=== PATIENT | male | born 1965 | race Caucasian/White ===

== ENCOUNTER → 2019-04-12 | Outpatient (CLI) | payer OTHER ==
[2019-04-12 09:08] LABS: Basophils % (A) 0 %; Eosinophils # (A) 0.2 k/uL (0-0.7); Eosinophils % (A) 1 %; HCT 46.7 % (39.0-53.0); HGB 16.1 gm/dL (13.0-17.5); Lymphocytes # (A) 1.4 k/uL (1.0-4.8); Lymphocytes % (A) 11 %; MCH 32.4 pg (25.0-35.0); MCHC 34.5 g/dL (31.0-37.0); Mean Platelet Volume 6.9; Monocytes # (A) 0.6 k/uL (0-1.0); Monocytes % (A) 5 %; Neutrophils # (A) 10.6 k/uL (1.3-7.7); Neutrophils % (A) 83 %; Platelet Count 334 k/uL (150-450); RBC 4.97 m/uL (4.30-5.90); RDW 12.9 % (11.5-15.5); WBC 12.8 k/uL (3.8-10.6)
[2019-04-12 09:18] LABS: African American GFR (CKD) >90 (>60 ml/min/1.73 sqM); Anion Gap 13 mmol/L; Blood Urea Nitrogen 10 mg/dL (9-20); Calcium 9.6 mg/dL (8.4-10.2); Carbon Dioxide 23 mmol/L (22-30); Chloride 104 mmol/L (98-107); Glucose 238 mg/dL (74-99); Non-African American GFR(CKD) >90 (>60 ml/min/1.73 sqM); Sodium 140 mmol/L (137-145)
--- NOTE | 2019-04-12 09:46 | XR ---
EXAMINATION TYPE: XR chest 2V DATE OF EXAM: 04/12/2019 COMPARISON: NONE HISTORY: Preop TECHNIQUE: Frontal and lateral views of the chest are obtained. FINDINGS: There is no focal air space opacity, pleural effusion, or pneumothorax seen. The cardiac silhouette size is within normal limits. The osseous structures are intact. Question some prominenc e of interstitium. IMPRESSION: No acute cardiopulmonary process. Questionable interstitial lung disease.
== END | disposition home or self-care (01) ==
LOC: RADXRMAIN 08:12
PROVIDERS: ATTEND Urology
DX: Z01.818 Encounter for other preprocedural examination (principal); Z01.812 Encounter for preprocedural laboratory examination; R05 Cough; R53.83 Other fatigue; R33.9 Retention of urine, unspecified; N40.1 Benign prostatic hyperplasia with lower urinary tract symptoms
CPT/HCPCS: 36415; 71046; 80048; 84153; 85025; 93005

== ENCOUNTER 2019-04-19 11:07 | Day surgery (SDC) | payer OTHER ==
[2019-04-11 11:53] VITALS: BMI 29.8
--- NOTE | 2019-04-17 19:48 | P.HPIHPCON ---
History of Present Illness H&P Date: 04/18/19 Chief Complaint: Urinary retention Mr Molina is 53 yo male with hx of urinary retention, He failed multiple TOV. I discussed with him the surgical option vs CIC. He agreed to proceed with TURP. I discussed with him the risk of TURP which include but not limited to bleeding, infection, injury to the bladder, risk of incontinence. Also discussed that he will have retrograde ejaculation. Also discussed risk he might still have difficulty voiding after TURP. Also discussed risk from anesthesia which include but not limited to heart attack, stroke, blood clot and even loss of life. He understood all risks and agreed to proceed with TURP Consent for Procedure: I have explained the operation/procedure to the patient, including the risks, benefits, side effects, alternative therapies (including not receiving the proposed treatment or service), the likelihood of the patient achieving his/her goals, and potential recuperation problems for the procedure/sedation/analgesia, as well as any blood products, if indicated. I also explained to the patient the risks, benefits and side effects of the alternatives, as well as the risks related to not receiving the proposed procedure, care, treatment, or services. - Constitutional Constitutional: Denies chills, Denies fever - Cardiovascular Cardiovascular: Denies chest pain, Denies dyspnea on exertion - Respiratory Respiratory: Denies cough Past Medical History Past Medical History: Hyperlipidemia, Hypertension, Prostate Disorder Additional Past Medical History / Comment(s): was seen in ER @ [facility] and had hernandez inserted 03-01-19-stated "Dr had attempted to remove x2 in office but not able to urinate afterward",enlarged prostate,hx no longer on any high blood pressure meds or cholesterol meds History of Any Multi-Drug Resistant Organisms: None Reported Past Surgical History: No Surgical Hx Reported Additional Past Surgical History / Comment(s): wisdom teeth removal Past Anesthesia/Blood Transfusion Reactions: No Reported Reaction Additional Past Anesthesia/Blood Transfusion Reaction / Comment(s): never has had general anesthesia or blood transfusion Smoking Status: Current every day smoker - Past Family History Mother Family Medical History: No Reported History Medications and Allergies Home Medications Medication Instructions Recorded Confirmed Type Ibuprofen 200 mg PO Q6H PRN 04/11/19 04/11/19 History Tamsulosin [Flomax] 0.4 mg PO BID 04/11/19 04/11/19 History Allergies Allergy/AdvReac Type Severity Reaction Status Date / Time No Known Allergies Allergy Verified 04/11/19 11:44 Surgical - Exam - General well developed, well nourished - Respiratory normal expansion, normal respiratory effort - Abdomen Abdomen: soft, non tender - Psychiatric oriented to time, oriented to person, oriented to place, speech is normal Assessment and Plan Assessment: 53 yo male with hx of urinary retention -OR for TURP
[~2019-04-19 11:07] MED LIST: DEXAMETHASONE SOD PHOSPHATE 10 MG/ML 1 ML VIAL IV ONE; GENTAMICIN 120 MG in SODIUM CHLORIDE 0.9% 100 ML IVPB ONE; HYDROmorphone 0.5 MG/0.5 ML SYRINGE IVP PRN; LACTATED RINGERS 1,000 ML IV SCH; LIDOCAINE 1% 20 ML VIAL (10MG/ML) FOR IV START INTRADERMA PRN; MIDAZOLAM 2 MG/2 ML VIAL IV PRN; ONDANSETRON 4 MG/2 ML VIAL IVP ONE; SCOPOLAMINE 1.5MG/72HR PATCH TRANSDERM ONE
[2019-04-19] MEDS ORDERED: NEOSTIGMINE 1 MG/ML 10 ML VIAL ONE (13:14)
[2019-04-19] MEDS ORDERED: GLYCOPYRROLATE 0.2 MG/ML 2 ML VIAL ONE (13:14)
[2019-04-19] MEDS ORDERED: fentaNYL (PF) 50 MCG/ML 2 ML AMP ONE (13:14)
[2019-04-19] MEDS ORDERED: HYDROmorphone (PF) 1 MG/ML ONE (13:14)
[2019-04-19] MEDS ORDERED: PROPOFOL 10 MG/ML 20 ML VIAL IV ONE (13:14)
[2019-04-19] MEDS ORDERED: MIDAZOLAM 2 MG/2 ML VIAL ONE (13:14)
[2019-04-19] MEDS ORDERED: SUCCINYLCHOLINE CHLORIDE 100 MG/5 ML SYR IV ONE (13:14)
[2019-04-19] MEDS ORDERED: LIDOCAINE 1% INJ 10MG/ML (20 ML MDV) ONE (13:14)
[2019-04-19] MEDS ORDERED: ROCURONIUM BROMIDE 10 MG/ML 10 ML VIAL IV ONE (13:14)
[2019-04-19] MEDS ORDERED: ePHEDrine SULFATE/0.9% NACL/PF 50 MG/5 ML SYRINGE IV ONE (13:14)
[2019-04-19] MEDS ORDERED: LACTATED RINGERS 1,000 ML IV ONE (14:29)
[2019-04-19 16:07] VITALS: RESP 16; TEMP 98.2
--- NOTE | 2019-04-19 16:29 | P.OP ---
Date of Procedure: 04/19/19 Preoperative Diagnosis: Urinary retention Postoperative Diagnosis: Same Procedure(s) Performed: TURP, TURBT(small) Implants: None Anesthesia: EVELYNA Surgeon: Brady Conrad Estimated Blood Loss (ml): 100 Pathology: other (bladder tumor, Prostate Chips) Condition: stable Disposition: PACU Indications for Procedure: Mr Molina is 53 yo male with hx of urinary retention, He failed multiple TOV. I discussed with him the surgical option vs CIC. He agreed to proceed with TURP. I discussed with him the risk of TURP which include but not limited to bleeding, infection, injury to the bladder, risk of incontinence. Also discussed that he will have retrograde ejaculation. Also discussed risk he might still have difficulty voiding after TURP. Also discussed risk from anesthesia which include but not limited to heart attack, stroke, blood clot and even loss of life. He understood all risks and agreed to proceed with TURP Operative Findings: Trilobar hyperplasia, evidence of catheter cystitis, leaving the area of cathete r cystitis there was a 1 cm area with raised border that was hypervascular concerning for Bladder cancer Description of Procedure: The patient was taken in the operating room and placed in the dorsolithotomy position, general anesthesia was induced. The external genitalia was prepped and draped sterilely. The 25-[place] ACMI resectoscope sheath was introduced into t he bladder. The bladder was inspected. Both ureteral orifices were of normal anatomic location and configuration, and clear urine effluxed from both. There was evidence of catheter cystitis. within the area of catheter cystitis there was a 1 cm lesion that was hypervascular with raised border with slightly papillary configuartion, this area was at the posterior bladder wall. This was concerning for bladder cancer. The described lesion was resected down and sent to pathology. the area of resection was thoroughly fulgurated. Examination of the prostate revealed complete with a trilobar configuration. Using the bipolar, the prostate lobes were resected down to the surgical capsule. The floor of the prostate was then resected, proximal to the verumontanum. Lastly, any remaining anterior tissue was resected. The remaining apical tissue was then carefully resected. The resection was carried down to the surgical capsule in all 4 quadrants. The prostatic fossa was then carefully examined, and any areas of bleeding were controlled with electrocautery. excellent hemostasis was attained. The resectoscope was withdrawn into the bulbous urethra. The external urinary sphincter remained intact. The prostatic fossa was open. The GeneCapture evacuator was used to remove all prostate chips from the bladder. These were saved and sent for pathologic examination. The resectoscope was removed, and a 22 arg[place] Mariee catheter was placed. The return was essentially clear. The patient tolerated the procedure well was taken to the recovery room in stable condition.
[2019-04-19 17:14] VITALS: BP 116/75; PULSE 91
== END 2019-04-19 17:28 | disposition home or self-care (01) ==
LOC: OR 11:07
PROVIDERS: ATTEND Urology
DX: N40.1 Benign prostatic hyperplasia with lower urinary tract symptoms (principal); R33.8 Other retention of urine; N30.00 Acute cystitis without hematuria; N30.20 Other chronic cystitis without hematuria; N32.89 Other specified disorders of bladder; I10 Essential (primary) hypertension; E78.5 Hyperlipidemia, unspecified; G47.33 Obstructive sleep apnea (adult) (pediatric); F17.210 Nicotine dependence, cigarettes, uncomplicated; K21.9 Gastro-esophageal reflux disease without esophagitis; Z79.899 Other long term (current) drug therapy; Z98.818 Other dental procedure status
CPT/HCPCS: 88305; 52234; 52601; J2250; J1100; J2710; J0690; J2405; J2001; J3010; J1580; J1170; J0330; J2704

== ENCOUNTER 2021-06-22 13:12 | Emergency (ER) | payer OTHER ==
[2021-06-22 13:23] VITALS: TEMP 98.8
--- NOTE | 2021-06-22 14:21 | XR ---
Right ankle HISTORY: Trauma and pain 3 views of the right ankle Comminuted displaced distal diaphyseal right fibular fracture, displaced medial malleolar fracture ar e present, there is lateral dislocation of the talus in regard to the distal tibia of approximately 2 cm. There is associated soft tissue swelling. IMPRESSION: Displaced fractures with associated dislocation is described
[2021-06-22] MEDS ORDERED: SODIUM CHLORIDE 0.9% 1,000 ML IV STA (15:00)
[2021-06-22] MEDS ORDERED: PROPOFOL 10 MG/ML 20 ML VIAL IV ONE (15:00)
[2021-06-22] MEDS ORDERED: MORPHINE SULFATE 4 MG/ML SYRINGE IVP STA (15:10)
--- NOTE | 2021-06-22 15:25 | ED ---
General Adult HPI - General Chief complaint: Extremity Injury, Lower Stated complaint: Rt Leg/Ankle Injury Time Seen by Provider: 06/22/21 15:00 Source: patient, family Mode of arrival: wheelchair Limitations: no limitations - History of Present Illness Initial comments: Dictation was produced using [employer] dictation software. please excuse any gram matical, word or spelling errors. Chief Complaint: Patient is a 55-year-old male presents emergency department for right ankle pain. History of Present Illness: 55-year-old male who has past medical history of diabetes. Patient was working at approximately 12:30 PM when his right lower extremity was crushed between 2 logs. He was driven here by one of his coworkers. Patient denies any numbness tingling to his foot. He states that he has extreme throbbing pain to his right ankle. Patient denies any bleeding. Patient states he had prostate surgery in the past and has tolerated anesthesia without any complications. Patient has NO KNOWN DRUG ALLERGIES. The ROS documented in this emergency department record has been reviewed and confirmed by me. Those systems with pertinent positive or negative responses have been documented in the HPI. All other systems are other negative and/or noncontributory. PHYSICAL EXAM: General Impression: Alert and oriented x3, not in acute distress HEENT: Normocephalic atraumatic, extra-ocular movements intact, pupils equal and reactive to light bilaterally, mucous membranes moist. Cardiovascular: Heart regular rate and rhythm Chest: Able to complete full sentences, no retractions, no tachypnea Abdomen: abdomen soft, non-tender, non-distended, no organomegaly Musculoskeletal: Pulses present and equal in all extremities, no peripheral edema Motor: no focal deficits noted Neurological: CN II-XII grossly intact, no focal motor or sensory deficits noted Right ankle: Grossly swollen and deformed right ankle, intact dorsalis pedis pulse and posterior tibial pulse, no numbness to light touch of the foot. Skin: Intact with no visualized rashes Psych: Normal affect and mood ED course: 55-year-old no presents to the emergency department for right ankle injury. Upon arrival shows heart rate of 114, rest of vital signs within a cceptable limits. Patient was placed in room 24. I arrived at work at 3:00 PM when I assumed care for this patient. He had been waiting approximately one hour and 30 minutes. Triage had ordered an x-ray that showed fracture dislocation of the right ankle. Skin is intact. Clinical presentation consistent with bimalleolar fracture of the right ankle. Patient ordered for morphine. Risk and benefits were discussed with patient. Patient signed consent for procedural sedation. Patient tolerated procedure well. He is placed in a splint. Post reduction x- rays are improved. There is comment made by radiology to obtain proximal fibular x-rays. He does not have any point tenderness in that area. Regardless patient is can be nonweightbearing to the right lower extremity. He is given a pair of Crutches. Case was discussed with Merissa who is the mid-level provider who recommend patient follow-up with orthopedic surgery within the next 3-4 days. A reevaluated bedside at 4:45 PM. He is stable. He is discharged with outpatient referral to orthopedic surgery. - Related Data Home Medications Medication Instructions Recorded Confirmed Ibuprofen 200 mg PO Q6H PRN 04/11/19 04/19/19 Tamsulosin [Flomax] 0.4 mg PO BID 04/11/19 04/19/19 Previous Rx's Medication Instructions Recorded HYDROcodone/APAP 5-325MG [Old Station 1 tab PO Q6HR PRN 3 Days #12 tab 06/22/21 5-325] Allergies Allergy/AdvReac Type Severity Reaction Status Date / Time No Known Allergies Allergy Verified 06/22/21 13:24 Review of Systems ROS Statement: Those systems with pertinent positive or pertinent negative responses have been documented in the HPI. ROS Other: All systems not noted in ROS Statement are negative. Past Medical History Past Medical History: Hyperlipidemia, Hypertension, Prostate Disorder Additional Past Medical History / Comment(s): was seen in ER @ [facility] and had hernandez inserted 03-01-19-stated "Dr had attempted to remove x2 in office but not able to urinate afterward",enlarged prostate,hx no longer on any high blood pressure meds or cholesterol meds History of Any Multi-Drug Resistant Organisms: None Reported Past Surgical History: No Surgical Hx Reported Additional Past Surgical History / Comment(s): wisdom teeth removal Past Anesthesia/Blood Transfusion Reactions: No Reported Reaction Additional Past Anesthesia/Blood Transfusion Reaction / Comment(s): never has had general anesthesia or blood transfusion Past Psychological History: No Psychological Hx Reported Smoking Status: Current every day smoker Past Alcohol Use History: Rare Past Drug Use History: None Reported - Past Family History Mother Family Medical History: No Reported History General Exam Limitations: no limitations Course Vital Signs 06/22/21 06/22/21 06/22/21 13:18 15:27 15:42 Temperature 98.8 F Pulse Rate 114 H 93 93 Respiratory 20 18 18 Rate Blood Pressure 172/87 143/89 151/74 O2 Sat by Pulse 97 97 95 Oximetry 06/22/21 06/22/21 06/22/21 15:45 15:50 15:55 Temperature Pulse Rate 93 75 90 Respiratory 18 18 18 Rate Blood Pressure 147/89 138/90 150/95 O2 Sat by Pulse 98 97 99 Oximetry 06/22/21 06/22/21 06/22/21 16:00 16:15 16:30 Temperature Pulse Rate 86 78 80 Respiratory 18 18 17 Rate Blood Pressure 131/99 146/90 144/80 O2 Sat by Pulse 96 98 97 Oximetry Procedures - Orthopedic Splinting/Casting Injury #1 Side: right Lower Extremity Injury Location: ankle Lower Extremity Immobilizer: posterior splint (orthoglass) Other Orthopedic Equipment: crutches - Procedural Sedation Procedural Sedation Start Time: 15:45 Procedural Sedation Stop Time: 15:52 Indications: fracture/dislocation reduction ASA Class: II Mallampati Airway Score: 2 Preparation: seismic plotter applied, pulse oximeter, capnometry used, supplemental O2 applied IV Propofol Dose (mgs): 100 Complications: none Medical Decision Making - Lab Data Result diagrams: 06/22/21 15:20 06/22/21 15:20 Lab Results 06/22/21 06/22/21 Range/Units 15:20 15:20 WBC 16.4 H (3.8-10.6) k/uL RBC 5.50 (4.30-5.90) m/uL Hgb 17.5 (13.0-17.5) gm/dL Hct 51.5 (39.0-53.0) % MCV 93.7 (80.0-100.0) fL MCH 31.7 (25.0-35.0) pg MCHC 33.9 (31.0-37.0) g/dL RDW 12.9 (11.5-15.5) % Plt Count 349 (150-450) k/uL MPV 7.0 Neutrophils % 82 % Lymphocytes % 12 % Monocytes % 5 % Eosinophils % 1 % Basophils % 0 % Neutrophils # 13.5 H (1.3-7.7) k/uL Lymphocytes # 1.9 (1.0-4.8) k/uL Monocytes # 0.7 (0-1.0) k/uL Eosinophils # 0.1 (0-0.7) k/uL Basophils # 0.1 (0-0.2) k/uL Sodium 138 (137-145) mmol/L Potassium 4.3 (3.5-5.1) mmol/L Chloride 106 (98-107) mmol/L Carbon Dioxide 20 L (22-30) mmol/L Anion Gap 12 mmol/L BUN 12 (9-20) mg/dL Creatinine 0.93 (0.66-1.25) mg/dL Est GFR (CKD-EPI)AfAm >90 (>60 ml/min/1.73 sqM) Est GFR (CKD-EPI)NonAf >90 (>60 ml/min/1.73 sqM) Glucose 119 H (74-99) mg/dL Calcium 9.5 (8.4-10.2) mg/dL Disposition Clinical Impression: Ankle fracture Disposition: HOME SELF-CARE Condition: Fair Instructions (If sedation given, give patient instructions): Moderate Sedation (ED), Ankle Fracture (ED) Additional Instructions: no weight bearing to fractured leg Prescriptions: HYDROcodone/APAP 5-325MG [[place] Station 5-325] 1 tab PO Q6HR PRN 3 Days #12 tab PRN Reason: Severe Pain Is patient prescribed a controlled substance at d/c from ED?: Yes If prescribed controlled substance>3 days was MAPS reviewed?: Prescribed <3 Days Referrals: Trung Navarro DO [Doctor of Osteopathic Medicine] - 1-2 days
[2021-06-22 15:43] LABS: Basophils # (A) 0.1 k/uL (0-0.2); Basophils % (A) 0 %; Eosinophils # (A) 0.1 k/uL (0-0.7); Eosinophils % (A) 1 %; HCT 51.5 % (39.0-53.0); HGB 17.5 gm/dL (13.0-17.5); Lymphocytes # (A) 1.9 k/uL (1.0-4.8); Lymphocytes % (A) 12 %; MCH 31.7 pg (25.0-35.0); MCHC 33.9 g/dL (31.0-37.0); MCV 93.7 fL (80.0-100.0); Monocytes # (A) 0.7 k/uL (0-1.0); Monocytes % (A) 5 %; Neutrophils # (A) 13.5 k/uL (1.3-7.7); Neutrophils % (A) 82 %; Platelet Count 349 k/uL (150-450); RDW 12.9 % (11.5-15.5); WBC 16.4 k/uL (3.8-10.6)
[2021-06-22 16:03] LABS: African American GFR (CKD) >90 (>60 ml/min/1.73 sqM); Anion Gap 12 mmol/L; Blood Urea Nitrogen 12 mg/dL (9-20); Calcium 9.5 mg/dL (8.4-10.2); Carbon Dioxide 20 mmol/L (22-30); Chloride 106 mmol/L (98-107); Glucose 119 mg/dL (74-99); Non-African American GFR(CKD) >90 (>60 ml/min/1.73 sqM); Potassium 4.3 mmol/L (3.5-5.1); Sodium 138 mmol/L (137-145)
--- NOTE | 2021-06-22 16:14 | XR ---
EXAMINATION TYPE: XR ankle limited RT DATE OF EXAM: 06/22/2021 COMPARISON: X-ray dated 06/22/2021 at 2:21 PM INDICATION: Postreduction TECHNIQUE: 2 views of the right ankle FINDINGS: The right ankle is seen in a fiberglass cast obscuring fine bony details. Interval proper reduction o f the previously seen fracture dislocation of the right ankle. The fractured distal fibular diaphysis as well as medial malleolus are still appreciated. Surrounding soft tissue swelling/hematoma. Recomm end x-ray of the proximal fibula to rule out Maisonneuve fracture. IMPRESSION: As above.
[2021-06-22 17:21] VITALS: RESP 18
[2021-06-22 17:26] VITALS: BP 146/90; PULSE 83
== END 2021-06-22 17:30 | disposition home or self-care (01) ==
LOC: EC 13:12
DX: S82.891A Other fracture of right lower leg, initial encounter for closed fracture (principal); S93.04XA Dislocation of right ankle joint, initial encounter; E11.9 Type 2 diabetes mellitus without complications; I10 Essential (primary) hypertension; E78.5 Hyperlipidemia, unspecified; F17.200 Nicotine dependence, unspecified, uncomplicated; Z79.899 Other long term (current) drug therapy; W23.0XXA Caught, crushed, jammed, or pinched between moving objects, initial encounter
CPT/HCPCS: 36415; 80048; 85025; 73600; 73610; 27788; 99283; 96374; 96361 ×2; J2270; J2704

== ENCOUNTER 2021-07-02 08:51 | Day surgery (SDC) | payer OTHER ==
[2021-06-29 12:11] VITALS: BMI 28.5
[~2021-07-02 08:51] MED LIST changes: -DEXAMETHASONE SOD PHOSPHATE 10 MG/ML 1 ML VIAL IV ONE; +DEXAMETHASONE SOD PHOSPHATE 4 MG/ML 1 ML VIAL IV ONE; -GENTAMICIN 120 MG in SODIUM CHLORIDE 0.9% 100 ML IVPB ONE; -LIDOCAINE 1% 20 ML VIAL (10MG/ML) FOR IV START INTRADERMA PRN
[2021-07-02 09:24] LABS: Glucose,Whole Blood 122 mg/dL (75-99)
[2021-07-02] MEDS ORDERED: fentaNYL (PF) 50 MCG/ML 2 ML AMP IVP ONE (10:12)
[2021-07-02] MEDS ORDERED: LIDOCAINE 1% INJ 10MG/ML (20 ML MDV) ONE (10:36)
[2021-07-02] MEDS ORDERED: SODIUM CHLORIDE 0.9% (PF) 10 ML VIAL ONE (10:36)
[2021-07-02] MEDS ORDERED: ePHEDrine 50 MG/ML 1 ML VIAL ONE (10:36)
[2021-07-02] MEDS ORDERED: fentaNYL (PF) 50 MCG/ML 2 ML AMP ONE (10:36)
[2021-07-02] MEDS ORDERED: ROPIVACAINE 5 MG/ML 30 ML VIAL ONE (10:36)
[2021-07-02] MEDS ORDERED: MIDAZOLAM 2 MG/2 ML VIAL ONE (10:36)
[2021-07-02] MEDS ORDERED: SUCCINYLCHOLINE CHLORIDE 100 MG/5 ML SYR IV ONE (10:36)
[2021-07-02] MEDS ORDERED: PROPOFOL 10 MG/ML 20 ML VIAL IV ONE (10:36)
[2021-07-02] MEDS ORDERED: ceFAZolin 1,000 MG in SODIUM CHLORIDE 0.9% 1,000 ML IRRIGATION ONE (10:38)
[2021-07-02] MEDS ORDERED: LACTATED RINGERS 1,000 ML IV ONE (11:53)
[2021-07-02 12:22] VITALS: TEMP 98.4
--- NOTE | 2021-07-02 12:31 | P.OP ---
Date of Procedure: 07/02/21 Preoperative Diagnosis: 1. Displaced right bimalleolar ankle fracture 2. Ruptured syndesmosis right ankle Postoperative Diagnosis: 1. Same 2. Same Procedure(s) Performed: 1. Open reduction with fixation right bimalleolar ankle fracture 2. Open reduction with internal fixation right syndesmotic rupture Implants: Arthrex precontoured lateral malleolar plate with 3.5 locking screws, 3.0 locking screws, and 3.0 cortical screws Arthrex 4.0 cannulated screws 2 Arthrex tightrope Anesthesia: TASHA Surgeon: Landen Katz Estimated Blood Loss (ml): 5 Pathology: none sent Condition: stable Disposition: PACU Indications for Procedure: Unstable displaced bimalleolar fracture right ankle Description of Procedure: Prior to the patient being brought to the operating room, anesthesia administered a nerve block on the right lower extremity. The patient was then brought into the operating room and placed on table supine position. Timeout was taken to confirm correct patient identifiers, correct procedure, and correct site of surgery. When all staff were in agreement with the timeout, the patient was induced and placed under general anesthesia. A well-padded tourniquet was placed on the right thigh and a bump underneath the right hip to internally rotate the right leg. The right leg was then prepped and draped usual manner. Right leg was exsanguinated with an Esmarch bandage, the knee was flexed and then the tourniquet inflated to 250 mmHg Tension was directed over the lateral malleolus where a linear incision was made. It was deepened under the subcutaneous tissue careful to identify, avoid, and retract any neurovascular structures and cauterize any bleeding vessels. Full-thickness dissection was performed down to level of level of the lateral malleolus. The tissue was incised and reflected off the lateral malleolus. The fracture was identified which was proximal to the ankle joint. It was comminuted with 2 main fragments into small fragments. The fracture was brought into alignment with length correction. A bone clamp was used to hold the fracture in place. It was extremely unstable therefore K wire was also placed across the fracture to maintain stability. An Arthrex precontoured lateral malleolar plate was then positioned over the lateral malleolus. Position was adjusted until it was correct under fluoroscopy. Temporary fixation was then applied to the plate to hold it in place as well as maintain the reduction of the fracture. 3.5 mm locking screw was placed in the most proximal hole the plate. Then a combination of 3.0 cortical screws and 3.0 locking screws were placed in the distal portion of the plate in the lateral malleolus. Once both screws were placed the temporary fixation was removed and then an additional 3.5 mm locking screw was placed in the second most proximal hole the plate. Construct was checked for stability which was rigid with no apparent movement. Then attention was directed over the medial malleolus where fluoroscopy was used to identify the landmarks for placement of the percutaneous screws. Guidewires for 4.0 cannulated screws were inserted at the anterior and distal tip the lateral malleolus and the wires were advanced superiorly and posteriorly so that they were perpendicular to the fracture line in the medial malleolus. The guidewires were checked for position both on AP and lateral views and once the position was correct the drill was placed over the wires and drilling was done past the fracture line. 4.0 long threaded cannulated screws were placed over the guidewires and advanced until the heads engaged the medial malleolus and compressed the fracture and then tightened. Fluoroscopic imaging on the AP and lateral view show the screws were properly positioned and that the fracture was reduced in the medial joint contour maintained. Attention was redirected laterally for the placement of the syndesmotic repair. The proper hole in the plate was identified and then the drill bit inserted and advanced through the fibula and across the tibia. The drill bit orientation was straight lateral to medial with slight anterior angulation. Once the drill bit exited out the medial cortex of the tibia was removed. Then the Arthrex tight rope anchor was inserted until the tibial button was clear of the cortex. The button was then deployed and the manipulated so it laid flat against the tibia. Then the rate inserter was removed from the drill hole and the suture released from the rate inserter. A large reduction clamp was then placed across the ankle fracture to keep the syndesmosis reduced. Operative tensioning was performed with the reduction clamp as the ankle was held in maximally dorsiflexed position. With the ankle held in that position the lateral button of the tight rope anchor was then tightened utilizing proper technique until the button engaged the plate and the suture was tight. Fluoroscopic imaging confirmed proper placement of the anchor. Stress testing the ankle revealed no gapping of medial gutter and no abnormal separation of the syndesmosis. All wounds were then thoroughly irrigated with antibiotic saline. Deep closure on the lateral incision was done with 2-0 Vicryl. Subcutaneous closure the lateral incision was done with 4-0 Monocryl. All skin incisions were then closed with stainless steel alvarado. An Arthrex jumpstart dressing was placed over the lateral malleolar incision and Adaptic over the medial incisions. A bulky dry dressings applied the right ankle. The tourniquet was released and capillary refill return to all digits on the right foot. Then the patient was placed in a well-padded, well molded plaster posterior mold/sugar tong splint. Ankle was held in neutral position until the splint dried. the patient tolerated above procedure and anesthesia well and went to recovery with vital signs stable
--- NOTE | 2021-07-02 12:33 | FL ---
EXAMINATION TYPE: FL guidance operating room, XR ankle complete RT DATE OF EXAM: 07/02/2021 COMPARISON: 06/22/2021 HISTORY: 55-year-old male right ankle fracture in the OR FINDINGS: Intraoperative fluoroscopy with 3 images provided. These show interval reduction and bimalleolar ankl e fracture fixation as well as syndesmotic tight rope fixation again stable fracture. FLUOROSCOPY Fluoroscopy time of 50 seconds was used during bimalleolar and syndesmotic ankle fracture fixation. 3 image/s document/s the procedure. IMPRESSION: Intraoperative fluoroscopy as above.
--- NOTE | 2021-07-02 12:37 | P.ANPRN ---
Procedure Note - Anesthesia - Nerve Block Performed Right Popliteal Single Time Out Performed: Yes (1010) Date of Procedure: 07/02/21 Procedure Start Time: 10:11 Procedure Stop Time: 10:14 Location of Patient: PreOp Indication: Acute Post-Operative Pain, Requested by Surgeon Specifically requested for management of pain by DrNeftaly: Landen Katz Sedation Type: Sedate with meaningful contact maintained Preparation: Sterile Prep Position: Left Lateral Catheter: None Needle Types: Pajunk Needle Gauge: 21 Ultrasound used to visualize needle placement: Yes Ultrasound used to observe medication spread: Yes Injectate: 0.5% Ropivacaine (see comment for volume) (15cc + 5cc nacl pf) Blood Aspirated: No Pain Paresthesia on Injection Noted: No Resistance on Injection: Normal Image Stored and Saved: Yes Events: Uneventful and Well Tolerated
--- NOTE | 2021-07-02 12:37 | P.ANPRN ---
Procedure Note - Anesthesia - Nerve Block Performed Right Adductor Canal Single Time Out Performed: Yes (1010) Date of Procedure: 07/02/21 Procedure Start Time: 10:15 Procedure Stop Time: :18 Location of Patient: PreOp Indication: Acute Post-Operative Pain, Requested by Surgeon Specifically requested for management of pain by DrNeftaly: Landen Katz Sedation Type: Sedate with meaningful contact maintained Preparation: Sterile Prep Position: Supine Catheter: None Needle Types: Pajunk Needle Gauge: 21 Ultrasound used to visualize needle placement: Yes Ultrasound used to observe medication spread: Yes Injectate: 0.5% Ropivacaine (see comment for volume) (15cc + 5cc nacl pf) Blood Aspirated: No Pain Paresthesia on Injection Noted: No Resistance on Injection: Normal Image Stored and Saved: Yes Events: Uneventful and Well Tolerated
[2021-07-02 13:11] VITALS: RESP 18
[2021-07-02 13:27] VITALS: BP 122/66; PULSE 100
== END 2021-07-02 13:51 | disposition home or self-care (01) ==
LOC: OR 08:51
PROVIDERS: ATTEND Podiatrist
DX: S82.841A Displaced bimalleolar fracture of right lower leg, initial encounter for closed fracture (principal); S93.491A Sprain of other ligament of right ankle, initial encounter
CPT/HCPCS: 27814; 27829; 64447; 64445; 76942; 73610; C1713 ×2; J2250; J1100; J0690 ×2; J2405; J2001; J3010; J2795; J0330; J2704